=== PATIENT | female | born 1940 | race Caucasian/White ===

== ENCOUNTER → 2023-08-28 11:07 | Outpatient (CLI) | payer MEDICARE, SELFPAY ==
[2023-08-28 12:13] LABS: Rheumatoid Factor < 8.6 IU/mL (<12.0)
[2023-09-03 15:11] LABS: ANA Screen, IFA Negative (.)
== END ==
PROVIDERS: PCP Physician Assistant; Referring Provider Internal Medicine Critical Care Medicine; Visit Provider Internal Medicine Critical Care Medicine
DX: J84.9 Interstitial pulmonary disease, unspecified (principal); I27.20 Pulmonary hypertension, unspecified; R09.02 Hypoxemia
CPT/HCPCS: 36415; 86038; 86430; 99215

== ENCOUNTER → 2023-09-08 11:53 | Outpatient (CLI) | payer MEDICARE, SELFPAY ==
--- NOTE | 2023-09-08 12:30 | DI.CT.S_ITS ---
PROCEDURE: CT CHEST HIGH RESOLUTION INDICATIONS: ILD TECHNIQUE: Noncontrast 1.0 and 5.0 mm thick contiguous axial sections from the pulmonary apex to the posterior costophrenic angles, with 7 mm thick coronal and sagittal MIP reformats. 1 mm thick dynamic expiratory images acquired through the upper, mid, and lower lungs. 1.0 mm thick axial sections acquired from the preet to the posterior costophrenic angles in the prone end-inspiration position. For radiation dose reduction, the following was used: automated exposure control, adjustment of mA and/or kV according to patient size. COMPARISON: [facility], CT, CT CHEST WITHOUT CONTRAST, 05/22/2023, 12:19. FINDINGS: Image quality: Diagnostic. Lower Neck: No enlarged lymph nodes. Thyroid: No thyroid nodules which require sonographic follow up, per consensus guidelines. Axillae: No enlarged lymph nodes. Chest Wall: Unremarkable. Bones: No suspicious osseous lesion. Three-vessel coronary artery calcifications. Prior fracture deformity of the sternum. Multilevel vertebral body compression fractures are unchanged. Lungs and Pleura: No pneumothorax or pleural effusions. Mild peripheral reticular thickening. Mild bronchiectasis. No honeycombing. No air trapping. Right minor fissure pulmonary nodule measuring 0.4 cm, (2/132), unchanged. Heart: Heart size is normal. No pericardial effusion. Thoracic Vessels: The aorta and pulmonary arteries demonstrate normal size. Mediastinum and Mary: No enlarged lymph nodes. Esophagus: No wall thickening. No hiatal hernia. Upper Abdomen: Visualized upper abdomen solid organs and bowel loops appear normal. IMPRESSION: 1. Mild peripheral reticular thickening and bronchiectasis. Findings unchanged in the short-term interval. Findings most consistent with a nonspecific interstitial lung disease. No honeycombing or air trapping. 2. No acute airspace opacity. Dictated by: Gerardo Reynolds M.D. on 09/08/2023 at 22:30 Approved by: Gerardo Reynolds M.D. on 09/08/2023 at 22:40
== END ==
PROVIDERS: PCP Physician Assistant; Referring Provider Internal Medicine Critical Care Medicine; Visit Provider Internal Medicine Critical Care Medicine
DX: J84.9 Interstitial pulmonary disease, unspecified (principal); J47.9 Bronchiectasis, uncomplicated; I25.10 Atherosclerotic heart disease of native coronary artery without angina pectoris
CPT/HCPCS: 71250